=== PATIENT | female | born 1965 | race Two or more races ===

== ENCOUNTER → 2018-08-23 | Outpatient (CLI) | payer MEDICAID ==
[~2018-08-23] MED LIST: ACET325T14 PO; ASPI-515 PO; ATEN100T PO; ATEN25TA PO; BENA40TA55 PO; BENAZEPRIL PEG; HYDR25TA6 PO; IBUP-1623 PO; INSU100I34 SQ-INSULIN; LANS15CA60 PO; LOTENSIN PO; METF10007 PO; PANT40TA5 PO; PANTOPRAZOLE PO; WATER PILL PO; [UNRECOGNIZED DRUG - OTHER] PO
[2018-08-23 16:57] LABS: BASOPHILS # (AUTO) 0.03 x10^3/uL (0-0.1); BASOPHILS % (AUTO) 1 % (0-1); EOSINOPHILS # (AUTO) 0.09 x10^3/uL (0-0.4); EOSINOPHILS % (AUTO) 1 % (1-7); LYMPHOCYTES # (AUTO) 2.36 x10^3/uL (1-3.4); LYMPHOCYTES % (AUTO) 35 % (22-44); MD NO; MEAN CORPUSCULAR HEMOGLOBIN 28.3 pg (27.0-34.8); MEAN CORPUSCULAR HGB CONC 33.2 g/dL (32.4-35.8); MEAN PLATELET VOLUME 7.4 fL (7.4-10.4); MONOCYTES # (AUTO) 0.55 x10^3/uL (0.2-0.8); MONOCYTES % (AUTO) 8 % (2-9); NEUTROPHILS % (AUTO) 56 % (42-75); PLATELET COUNT 279 x10^3/uL (130-400); RED BLOOD COUNT 4.27 x10^6/uL (3.82-5.3); RED CELL DISTRIBUTION WIDTH 14.2 % (9.6-15.2)
[2018-08-23 17:07] LABS: ALBUMIN 3.7 g/dL (3.4-5.0); ANION GAP 9 mmol/L (5-15); CALCIUM 8.5 mg/dL (8.5-10.1); CHLORIDE 111 mmol/L (98-107)
[2018-08-23 17:10] LABS: ALANINE AMINOTRANSFERASE 36 U/L (12-78); ALKALINE PHOSPHATASE 103 U/L (45-117); BILIRUBIN,TOTAL 0.4 mg/dL (0.2-1.0); CREATININE 0.88 mg/dL (0.55-1.02)
== END | disposition home or self-care (01) ==
LOC: STAR 15:46
PROVIDERS: ATTEND Internal Medicine Gastroenterology
DX: Z01.818 Encounter for other preprocedural examination (principal); D64.9 Anemia, unspecified; K92.1 Melena; K60.2 Anal fissure, unspecified; K21.9 Gastro-esophageal reflux disease without esophagitis
CPT/HCPCS: 36415; 80053; 85025; 93005

== ENCOUNTER 2018-10-11 06:55 | Day surgery (SDC) | payer MEDICAID ==
[~2018-10-11] VITALS: Ht 149.9 cm; Wt 148.7 kg
[2018-10-11 07:21] VITALS: BP 155/87
[2018-10-11] MEDS ORDERED: LACTATED RINGERS 1,000 ML IV SCH (07:26)
[2018-10-11] MEDS ORDERED: LIDOCAINE-MPF 1%, 2ML INFIL ONE (07:30)
[2018-10-11] MEDS ORDERED: PROPOFOL 10 MG/ML, 20ML ONE (08:26)
[2018-10-11] MEDS ORDERED: LABETALOL 5MG/ML, 20ML IV PRN (09:30)
[2018-10-11] MEDS ORDERED: DIAZEPAM 5 MG/ML, 2ML IVPush PRN (09:30)
[2018-10-11] MEDS ORDERED: EPHEDRINE 50 MG/ML, 1ML IVPush PRN (09:30)
[2018-10-11] MEDS ORDERED: HYDROmorphone 2 MG/ML, 1ML IVPush PRN (09:30)
[2018-10-11] MEDS ORDERED: HALOPERIDOL 5 MG/ML IV PRN (09:30)
[2018-10-11] MEDS ORDERED: MEPERIDINE/PF 25MG/0.5ML IVPush PRN (09:30)
[2018-10-11] MEDS ORDERED: FENTANYL PF 100 MCG/2ML IV PRN (09:30)
[2018-10-11] MEDS ORDERED: OXYcodone 5 MG/5 ML ORAL.SOL UDC PO PRN (09:30)
[2018-10-11] MEDS ORDERED: hydrALAzine 20 MG/ML, 1ML IV PRN (09:30)
[2018-10-11] MEDS ORDERED: ALBUTEROL SULFATE 2.5 MG/3 ML NPPB PRN (09:30)
[2018-10-11] MEDS ORDERED: ONDANSETRON 2MG/ML, 2ML IV PRN (09:30)
[2018-10-11] MEDS ORDERED: ONDANSETRON ODT 8 MG PO PRN (09:30)
[2018-10-11] MEDS ORDERED: PROMETHAZINE 25 MG/ML, 1ML IV PRN (09:30)
[2018-10-11] MEDS ORDERED: PROMETHAZINE 12.5 MG SUPP PR PRN (09:30)
[2018-10-11] MEDS ORDERED: MORPHINE SULFATE 4 MG/ML, 1ML IVPush PRN (09:30)
[2018-10-11] MEDS ORDERED: MIDAZOLAM 1 MG/ML, 2ML IV PRN (09:30)
== END 2018-10-11 11:05 | disposition home or self-care (01) ==
LOC: OUT 06:55
PROVIDERS: ATTEND Internal Medicine Gastroenterology
DX: K63.5 Polyp of colon (principal); K29.00 Acute gastritis without bleeding; K57.30 Diverticulosis of large intestine without perforation or abscess without bleeding; K64.4 Residual hemorrhoidal skin tags; K60.2 Anal fissure, unspecified; D64.9 Anemia, unspecified; E11.9 Type 2 diabetes mellitus without complications; I10 Essential (primary) hypertension; E78.5 Hyperlipidemia, unspecified; G47.33 Obstructive sleep apnea (adult) (pediatric); E66.01 Morbid (severe) obesity due to excess calories; Z68.45 Body mass index [BMI] 70 or greater, adult; Z79.84 Long term (current) use of oral hypoglycemic drugs
CPT/HCPCS: 43239; 45380; 82962; 88305; 88342; J2704; J3490; J7120